=== PATIENT | male | born 1990 | race Caucasian/White ===

== ENCOUNTER 2020-07-10 18:40 | Emergency (ER) | payer OTHER, MEDICAID ==
[2020-07-10] MEDS ORDERED: Morphine 4 MG/ML Syringe IVPUSH ONE (18:44)
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
[2020-07-10 19:57] LABS: BLOOD UREA NITROGEN,BUN 12 mg/dL (7.0-18.0); CARBON DIOXIDE,CO2 25.4 mmol/L (21.0-32.0); CHLORIDE,CL 106 mmol/L (98-107); GLUCOSE RANDOM 108 mg/dL (74-106); POTASSIUM,K 3.6 mmol/L (3.5-5.1); SODIUM,NA 141 mmol/L (136-148)
[2020-07-10] MEDS ORDERED: Ketorolac 15 MG/ML SDV IVPUSH STA (20:27)
[2020-07-10] MEDS ORDERED: Cyclobenzaprine 10 MG Tab PO ONE (20:27)
[2020-07-10] MEDS ORDERED: Ondansetron 4 MG/2 ML SDV IVPUSH ONE (20:34)
== END 2020-07-10 20:46 | disposition home or self-care (01) ==
LOC: MW.ED 18:40
DX: S39.012A Strain of muscle, fascia and tendon of lower back, initial encounter (principal); S16.1XXA Strain of muscle, fascia and tendon at neck level, initial encounter; R51.9 Headache, unspecified; R10.30 Lower abdominal pain, unspecified; V89.2XXA Person injured in unspecified motor-vehicle accident, traffic, initial encounter
CPT/HCPCS: 36415; 72125; 72131; 72170; 80053; 81003; 85025; 96374; 96375; 99285; A9270; J1885; J2270; J2405

== ENCOUNTER 2021-03-13 08:51 | Emergency (ER) | payer MEDICAID, BC ==
--- NOTE | 2021-03-13 09:19 | EDM.PDOC ---
ED HPI GENERAL MEDICAL PROBLEM - General Chief Complaint: Respiratory Problem Stated Complaint: CHEST PAIN/SOB/COUGH Time Seen by Provider: 03/13/21 08:53 Source of Information: Reports: Patient History Limitations: Reports: No Limitations - History of Present Illness INITIAL COMMENTS - FREE TEXT/NARRATIVE: Pt is a 31-year-old male who presents today for cough and shortness of breath. He states that he has been having productive cough since yesterday and had difficulty sleeping due to his chronic coughing. States he has pain in the his chest only when he coughs. He also reports diffuse body aches as well but no fevers. Patient tolerating p.o. but states he has not decreased p.o. intake. Denies any abdominal pain diarrhea or other complaints. chest/rib Pain Score (Numeric/FACES): 5 - Related Data Allergies Allergy/AdvReac Type Severity Reaction Status Date / Time No Known Allergies Allergy Verified 03/13/21 09:07 Home Meds: Home Meds . [No Known Home Meds] 03/13/21 [History] Past Medical History - Past Health History Medical/Surgical History: Denies Medical/Surgical History - Infectious Disease History Infectious Disease History: Reports: None Social & Family History - Family History Family Medical History: No Pertinent Family History - Tobacco Use Tobacco Use Status *Q: Never Tobacco User - Caffeine Use Caffeine Use: Reports: None - Recreational Drug Use Recreational Drug Use: No ED ROS GENERAL - Review of Systems Review Of Systems: See Below Constitutional: Reports: No Symptoms HEENT: Reports: No Symptoms Respiratory: Reports: Shortness of Breath, Cough, Sputum Cardiovascular: Reports: No Symptoms Endocrine: Reports: No Symptoms GI/Abdominal: Reports: No Symptoms : Reports: No Symptoms Musculoskeletal: Reports: No Symptoms Skin: Reports: No Symptoms Neurological: Reports: No Symptoms Psychiatric: Reports: No Symptoms Hematologic/Lymphatic: Reports: No Symptoms Immunologic: Reports: No Symptoms ED EXAM, GENERAL - Physical Exam Exam: See Below Exam Limited By: No Limitations General Appearance: Alert, WD/WN, No Apparent Distress Eye Exam: Bilateral Eye: EOMI, PERRL Nose: Normal Inspection Head: Atraumatic, Normocephalic Respiratory/Chest: No Respiratory Distress, Lungs Clear, Normal Breath Sounds Cardiovascular: Normal Peripheral Pulses, Regular Rate, Rhythm GI/Abdominal: Normal Bowel Sounds, Soft, Non-Tender Extremities: Normal Inspection, Normal Range of Motion Neurological: Alert, Oriented, Normal Cognition, Normal Gait Course - Vital Signs Last Recorded V/S: Last Vital Signs Temp 97.2 F 03/13/21 09:04 Pulse 92 03/13/21 09:04 Resp 18 03/13/21 09:04 BP 115/73 03/13/21 09:04 Pulse Ox 94 L 03/13/21 09:04 - Orders/Labs/Meds Labs: Laboratory Tests 03/13/21 03/13/21 03/13/21 Range/Units 09:16 09: 09:30 WBC 6.68 (4.0-11.0) K/uL RBC 5.13 (4.50-5.90) M/uL Hgb 16.9 (13.0-17.0) g/dL Hct 47.5 (38.0-50.0) % MCV 92.6 (80.0-98.0) fL MCH 32.9 H (27.0-32.0) pg MCHC 35.6 (31.0-37.0) g/dL RDW Std Deviation 47.2 (28.0-62.0) fl RDW Coeff of [place] 14 (11.0-15.0) % Plt Count 184 (150-400) K/uL MPV 10.60 (7.40-12.00) fL Neut % (Auto) 61.5 (48.0-80.0) % Lymph % (Auto) 24.0 (16.0-40.0) % [place] % (Auto) 10.8 (0.0-15.0) % Eos % (Auto) 3.4 (0.0-7.0) % Baso % (Auto) 0.3 (0.0-1.5) % Neut # (Auto) 4.1 (1.4-5.7) K/uL Lymph # (Auto) 1.6 (0.6-2.4) K/uL [place] # (Auto) 0.7 (0.0-0.8) K/uL Eos # (Auto) 0.2 (0.0-0.7) K/uL Baso # (Auto) 0.0 (0.0-0.1) K/uL Nucleated RBC % 0.0 /100WBC Nucleated RBCs # 0 K/uL Sodium 144 (136-148) mmol/L Potassium 4.2 (3.5-5.1) mmol/L Chloride 108 H (98-107) mmol/L Carbon Dioxide 28.4 (21.0-32.0) mmol/L BUN 11 (7.0-18.0) mg/dL Creatinine 1.0 (0.8-1.3) mg/dL Est Cr Clr Drug Dosing 111.53 mL/min Estimated GFR (MDRD) > 60.0 ml/min Glucose 103 (74-106) mg/dL Calcium 9.1 (8.5-10.1) mg/dL Total Bilirubin 0.7 (0.2-1.0) mg/dL AST 78 H (15-37) IU/L ALT 137 H (14-63) IU/L Alkaline Phosphatase 140 H (46-116) U/L Total Protein 8.0 (6.4-8.2) g/dL Albumin 3.9 (3.4-5.0) g/dL Globulin 4.1 H (2.6-4.0) g/dL Albumin/Globulin Ratio 1.0 (0.9-1.6) Influenza Type A RNA NEGATIVE (NEGATIVE) Influenza Type B RNA NEGATIVE (NEGATIVE) SARS-CoV-2 RNA (BREANN) NEGATIVE (NEGATIVE) - Re-Assessments/Exams Free Text/Narrative Re-Assessment/Exam: 03/13/21 10:25 Patient x-ray clear of pneumonia Covid is negative patient has no white count no fevers. Patient is nontachycardic has no LE swelling or calf tenderness patient unlikely have a pulmonary emboli patient likely has a virus patient instructed to continue [id number] medication follow-up PMD as needed. Departure - Departure Time of Disposition: 10:25 Disposition: Home, Self-Care 01 Condition: Good Clinical Impression: Viral illness - Discharge Information *PRESCRIPTION DRUG MONITORING PROGRAM REVIEWED*: Not Applicable *COPY OF PRESCRIPTION DRUG MONITORING REPORT IN PATIENT NORA: Not Applicable Instructions: Viral Illness, Adult Referrals: Fermin Ugarte MD [Primary Care Provider] - Forms: ED Department Discharge Additional Instructions: You were seen today for cough and shortness of breath. We did labs and x-ray were clear your Covid test is also negative. You likely have a virus if you have any other concerning signs or symptoms please return to the ED otherwise continue [id number] medications. The following information is given to patients seen in the emergency department who are being discharged to home. This information is to outline your options for follow-up care. We provide all patients seen in our emergency department with a follow-up referral. The need for follow-up, as well as the timing and circumstances, are variable depending upon the specifics of your emergency department visit. If you don't have a primary care physician on staff, we will provide you with a referral. We always advise you to contact your personal physician following an emergency department visit to inform them of the circumstance of the visit and for follow-up with them and/or the need for any referrals to a consulting specialist. The emergency department will also refer you to a specialist when appropriate. This referral assures that you have the opportunity for follow-up care with a specialist. All of these measure are taken in an effort to provide you with optimal care, which includes your follow-up. Under all circumstances we always encourage you to contact your private physician who remains a resource for coordinating your care. When calling for follow-up care, please make the office aware that this follow-up is from your recent emergency room visit. If for any reason you are refused follow-up, please contact the [facility] Emergency Department at and asked to speak to the emergency department charge nurse. Please follow up with your primary care physician. If you do not have a primary care physician, see below: [facility] [address] [place] [id number] [facility] [address] [place] [id number] Sepsis Event Note (ED) - Evaluation Sepsis Screening Result: No Definite Risk - Focused Exam Vital Signs: Vital Signs Temp Pulse Resp BP Pulse Ox 03/13/21 09:04 97.2 F 92 18 115/73 94 L - Assessment/Plan Plan: Patient is a 31-year-old male presents today for cough and shortness of breath. Patient satting 97% on room air. Patient lungs are clear bilaterally we will obtain x-ray labs and reassess patient.
[2021-03-13 10:01] LABS: CORONAVIRUS COVID-19 NAA NEGATIVE (NEGATIVE); INFLUENZA A NAA NEGATIVE (NEGATIVE); INFLUENZA B NAA NEGATIVE (NEGATIVE)
[2021-03-13 10:07] LABS: BLOOD UREA NITROGEN,BUN 11 mg/dL (7.0-18.0); CARBON DIOXIDE,CO2 28.4 mmol/L (21.0-32.0); CHLORIDE,CL 108 mmol/L (98-107); GLUCOSE RANDOM 103 mg/dL (74-106); POTASSIUM,K 4.2 mmol/L (3.5-5.1); SODIUM,NA 144 mmol/L (136-148)
--- NOTE | 2021-03-13 10:08 | CR ---
INDICATION: Productive cough COMPARISON: none TECHNIQUE: Portable chest performed at 9:36 a.m. FINDINGS: The lungs are clear. The heart, mediastinum and pulmonary vessels are of normal size. There is no evidence of pleural fluid. IMPRESSION: Negative chest. Dictated by Loki Robison MD @ 03/13/2021 10:07:44 AM (Electronically Signed)
--- NOTE | 2021-03-13 11:09 | PCM.EKG ---
#1 Interpretation EKG Date: 03/13/21 Time: 11:02 Rhythm: NSR Rate (Beats/Min): 85 ST-T: Normal
== END 2021-03-13 11:27 | disposition home or self-care (01) ==
LOC: MW.ED 08:51
DX: B34.9 Viral infection, unspecified (principal); Z20.822 Contact with and (suspected) exposure to COVID-19
CPT/HCPCS: 0240U; 36415; 71045; 80053; 85025; 93005; 99284

== ENCOUNTER 2021-12-03 08:52 | Emergency (ER) | payer BC, MEDICAID ==
[2021-12-03] MEDS ORDERED: Ibuprofen 600 MG Tab PO ONE (09:29)
[2021-12-03] MEDS ORDERED: Azithromycin 250 MG Tab PO ONE (09:29)
[2021-12-03 10:20] LABS: CORONAVIRUS COVID-19 NAA POSITIVE (NEGATIVE); INFLUENZA A NAA NEGATIVE (NEGATIVE); INFLUENZA B NAA NEGATIVE (NEGATIVE)
== END 2021-12-03 09:48 | disposition home or self-care (01) ==
LOC: MW.ED 08:52
DX: J32.9 Chronic sinusitis, unspecified (principal); Z86.16 Personal history of COVID-19; Z20.822 Contact with and (suspected) exposure to COVID-19
CPT/HCPCS: 0240U; 99283; A9270

== ENCOUNTER 2022-06-14 12:56 | Emergency (ER) | payer OTHER, MEDICAID ==
[2022-06-14] MEDS ORDERED: Acetaminophen 325 MG Tab PO ONE (13:39)
[2022-06-14] MEDS ORDERED: Ibuprofen 400 MG Tab PO ONE (13:39)
[2022-06-14] MEDS ORDERED: Lidocaine/Epineph/Tetracaine 3 ML Syringe TOP ONE (13:41)
[2022-06-14] MEDS ORDERED: Diphtheria,Pertussis(Acell),Tetanus Vaccine 0.5 ML Syringe IM ONE (13:41)
[2022-06-14] MEDS ORDERED: Lidocaine 1% 5 ML VIAL INJECT STA (14:28)
== END 2022-06-14 15:49 | disposition home or self-care (01) ==
LOC: MW.ED 12:56
DX: S01.511A Laceration without foreign body of lip, initial encounter (principal); Z23 Encounter for immunization; Z86.16 Personal history of COVID-19; W22.09XA Striking against other stationary object, initial encounter
CPT/HCPCS: 12011; 90471; 90715; 99282; A9270; J3490

== ENCOUNTER 2022-09-18 10:05 | Emergency (ER) | payer MEDICAID ==
[2022-09-18] MEDS ORDERED: Sodium Chloride 0.9% 10 ML Syringe FLUSH PRN (10:38)
[2022-09-18] MEDS ORDERED: Ondansetron 4 MG/2 ML SDV IVPUSH STA (10:38)
[2022-09-18] MEDS ORDERED: Sodium Chloride 0.9% 1,000 ML IV STA (10:38)
[2022-09-18] MEDS ORDERED: Sodium Chloride 0.9% 2.5 ML Syringe FLUSH PRN (10:38)
[2022-09-18] MEDS ORDERED: Morphine 4 MG/ML Syringe IVPUSH STA (10:43)
[2022-09-18 10:46] LABS: BASOPHILS PERCENT AUTO 0.4 % (0.0-1.5); EOSINOPHILS ABSOLUTE AUTO 0.4 K/uL (0.0-0.7); EOSINOPHILS PERCENT AUTO 8.2 % (0.0-7.0); HEMATOCRIT 48.8 % (38.0-50.0); HEMOGLOBIN 17.4 g/dL (13.0-17.0); LYMPHOCYTES ABSOLUTE AUTO 2.1 K/uL (0.6-2.4); LYMPHOCYTES PERCENT AUTO 41.6 % (16.0-40.0); MEAN CORPUSCULAR HEMOGLOBIN 33.1 pg (27.0-32.0); MEAN CORPUSCULAR HGB CONC 35.7 g/dL (31.0-37.0); MONOCYTES ABSOLUTE AUTO 0.4 K/uL (0.0-0.8); MONOCYTES PERCENT AUTO 8.3 % (0.0-15.0); NEUTROPHILS ABSOLUTE AUTO 2.1 K/uL (1.4-5.7); NEUTROPHILS PERCENT AUTO 41.5 % (48.0-80.0); PLATELET COUNT,PLT 196 K/uL (150-400); RED BLOOD CELL COUNT 5.25 M/uL (4.50-5.90); WHITE BLOOD CELL COUNT,WBC 5.03 K/uL (4.0-11.0)
[2022-09-18 11:11] LABS: A/G RATIO 1.2 (0.9-1.6); ALBUMIN 4.4 g/dL (3.4-5.0); BILIRUBIN TOTAL 0.7 mg/dL (0.2-1.0); CALCIUM 9.4 mg/dL (8.5-10.1); CARBON DIOXIDE,CO2 24.8 mmol/L (21.0-32.0); EST CRCL DRUG DOSING (CG) 110.51 mL/min; POTASSIUM,K 4.4 mmol/L (3.5-5.1)
[2022-09-18] MEDS ORDERED: Iopamidol 755 MG/ML 500 ML Multipack Bottle IVPUSH ONE (12:36)
== END 2022-09-18 13:30 | disposition home or self-care (01) ==
LOC: MW.ED 10:05
DX: R10.9 Unspecified abdominal pain (principal); R11.2 Nausea with vomiting, unspecified; Z86.16 Personal history of COVID-19
CPT/HCPCS: 36415; 74177; 80053; 83690; 85025; 96361; 96374; 96375; 99284; J2270; J2405; J3490; J7030; Q9967